=== PATIENT | female | born 1975 | race Caucasian/White ===

== ENCOUNTER 2020-11-24 21:14 | Emergency (ER) | payer OTHER ==
[~2020-11-24 21:14] MED LIST: CATAPRES0.1 MG PO; CLARITIN-D 241 EACH PO; CLARITIN10 MG PO; CODEINE; COUGH MED; LEVAQUIN750 MG PO; MUCINEX 600MG600 MG PO; NORCO 5-325 TA1 EACH PO; SEROQUEL 100MG100 MG PO; SYMBICORT 1601 PUFFS INH; TRAZODONE 50MG50 MG PO
[2020-11-25 04:17] LABS: CORONAVIRUS 2019 SARS-COV-2 NEGATIVE (NEGATIVE); INFLUENZA A NAA NEGATIVE (NEGATIVE)
[2020-11-25] MEDS ORDERED: PREDNISONE 20MG20 MG PO (06:40)
== END 2020-11-25 07:08 | disposition home or self-care (01) ==
LOC: FER 21:14
PROVIDERS: Emergency Medicine
DX: J45.901 Unspecified asthma with (acute) exacerbation (principal); F17.200 Nicotine dependence, unspecified, uncomplicated; Z20.822 Contact with and (suspected) exposure to COVID-19
CPT/HCPCS: 71045; 71046; 94640; 94664; J7512; U0002